=== PATIENT | female | born 1940 | race Caucasian/White ===

== ENCOUNTER 2024-01-21 17:32 | Observation (INO) ==
[2024-01-21] MEDS: fentaNYL citrate PF 100 MCG/2 ML VIAL IV PRN (17:57)
[2024-01-21] MEDS: ONDANSETRON INJ 2 MG/ML 2 ML VIAL IV STA (17:57)
[2024-01-21 18:11] LABS: iSTAT Creatinine 0.4 mg/dl (0.6-1.3); iSTAT Hemoglobin 13.9 g/dl (12.0-16.0); iSTAT Ionized Calcium 1.12 mmol/l (1.12-1.32); iSTAT Potassium 4.3 mmol/L (3.3-5.0)
[2024-01-21 18:15] LABS: Basophils # (auto) 0.03 K/uL (0.00-0.20); Basophils % (auto) 0.4 %; Eosinophils % (auto) 1.4 %; Hematocrit (blood only) 40.2 % (37.0-47.0); Hemoglobin 13.8 g/dl (12.0-16.0); Immature Granulocytes # (auto) 0.05 K/uL (0.01-0.20); Immature Granulocytes % (auto) 0.7 %; Lymphocytes # (auto) 1.79 K/uL (1.20-3.40); Lymphocytes % (auto) 24.2 %; Mean Corpuscular Hemoglobin 30.3 pg (25.0-34.0); Mean Corpuscular Hgb Conc 34.3 g/dL (32.0-36.0); Mean Corpuscular Volume 88.2 fL (80.0-100.0); Monocytes # (auto) 0.47 K/uL (0.11-0.59); Monocytes % (auto) 6.4 %; Neutrophils # (auto) 4.95 K/uL (1.40-6.50); Neutrophils % (auto) 66.9 %; Platelet Count 195 K/uL (130-400); RDW Coefficient of Variation 13.1 % (11.5-14.5); RDW Standard Deviation 42.1 fL (36.4-46.3); Red Blood Count 4.56 M/uL (4.20-5.40); White Blood Count 7.39 K/ul (4.8-10.8)
[2024-01-21] MEDS: OPTIRAY 320 100ml IV ONE (18:21)
[2024-01-21 18:39] LABS: Alanine Aminotransferase 17 U/L (7-52); BUN Creatinine Ratio 51.1 (10-20); Bilirubin,Total 0.3 mg/dl (0.2-1.0); Blood Urea Nitrogen 24 mg/dl (6-23); Carbon Dioxide 23 mmol/L (21-32); Chloride 107 mmol/L (98-107); Creatinine Clr Calc Pharmacy 89.7 ml/min; Glucose 124 mg/dl (70-99(Fasting)); Total Protein 7.1 gm/dl (6.0-8.3); Troponin I High Sensitivity 5.9 pg/ml (0-14)
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
[2024-01-21 20:00] LABS: Albumin Level 4.1 gm/dl (3.4-5.0); Potassium 3.4 mmol/L (3.5-5.1)
[2024-01-21] MEDS ORDERED: Patient's ALLERGY Info needs ENTERED SCH (20:45)
[2024-01-21 20:55] LABS: Magnesium 1.8 mg/dl (1.7-2.4)
[2024-01-21] MEDS: POTASSIUM CHLORIDE CRTAB 20 MEQ TABCR PO STA (21:12)
[2024-01-21] MEDS: HYDROmorphone INJ 0.5 MG/0.5 ML SYR IV STA (21:28)
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
[2024-01-21] MEDS ORDERED: POLYETHYLENE (MIRALAX) 17 GM PACK PO PRN (23:22)
[2024-01-21] MEDS ORDERED: NITROGLYCERIN SL 0.4 MG/TAB TAB SL PRN (23:22)
[2024-01-21] MEDS ORDERED: ACETAMINOPHEN 325 MG TAB PO PRN (23:22)
[2024-01-21] MEDS: SODIUM CHLORIDE 0.9% 1,000 ML IV SCH (23:48)
[2024-01-22 03:37] LABS: Appearance Urine Clear (Clear); Bacteria Urine Automated None Seen (None Seen); Bilirubin Urine Negative (Negative); Blood Urine Trace (Negative); Cast Urine Automated 0-2 /lpf (0-2); Color Urine Yellow; Epithelial Cell Urine Auto 0-2 /hpf (0-2); Glucose Urine UA Negative (Negative); Ketones Urine Trace (Negative); Leukocyte Esterase Urine 2+ (Negative); Nitrite Urine Negative (Negative); Protein Urine Negative (Negative); RBC Urine Automated 0-2 /hpf (0-2); Specific Gravity Urine > 1.045 (1.000-1.030); Urobilinogen Urine Negative (Negative); WBC Urine Automated 0-5 /hpf (0-5); pH Urine 5.5 (4.5-7.5)
[2024-01-22] MEDS: ACETAMINOPHEN 1,000 MG/100 ML VIAL IV PRN (05:41)
[2024-01-22 06:41] LABS: Basophils # (auto) 0.02 K/uL (0.00-0.20); Basophils % (auto) 0.2 %; Hematocrit (blood only) 33.8 % (37.0-47.0); Hemoglobin 11.6 g/dl (12.0-16.0); Immature Granulocytes # (auto) 0.03 K/uL (0.01-0.20); Immature Granulocytes % (auto) 0.4 %; Lymphocytes # (auto) 1.11 K/uL (1.20-3.40); Lymphocytes % (auto) 13.7 %; Mean Corpuscular Hemoglobin 30.1 pg (25.0-34.0); Mean Corpuscular Hgb Conc 34.3 g/dL (32.0-36.0); Mean Corpuscular Volume 87.8 fL (80.0-100.0); Mean Platelet Volume 10.7 fL (9.4-12.4); Neutrophils # (auto) 6.52 K/uL (1.40-6.50); Neutrophils % (auto) 80.7 %; Platelet Count 149 K/uL (130-400); RDW Coefficient of Variation 13.2 % (11.5-14.5); Red Blood Count 3.85 M/uL (4.20-5.40); White Blood Count 8.08 K/ul (4.8-10.8)
[2024-01-22 06:55] LABS: BUN Creatinine Ratio 41.5 (10-20); Calcium 8.2 mg/dl (8.6-10.3); Creatinine Clr Calc Pharmacy 92.6 ml/min; Magnesium 1.8 mg/dl (1.7-2.4); Potassium 3.9 mmol/L (3.5-5.1)
[2024-01-22 07:01] LABS: Troponin I High Sensitivity 9.6 pg/ml (0-14)
--- NOTE | 2024-01-22 07:59 | Electrocardiogram Report ---
Test Reason : Blood Pressure : */* mmHG Vent. Rate : 91 BPM Atrial Rate : 91 BPM P-R Int : 166 ms QRS Dur : 66 ms QT Int : 396 ms P-R-T Axes : 36 57 35 degrees QTcB Int : 487 ms Poor data quality, interpretation may be adversely affected Normal sinus rhythm with occasional Premature atrial complexes Abnormal ECG No previous ECGs available Confirmed by Mark Perez ([id number]) on 01/22/2024 7:59:14 AM Referred By: REFERRED SELF Confirmed By: Mark Perez
--- NOTE | 2024-01-22 08:08 | Electrocardiogram Report ---
Test Reason : Blood Pressure : */* mmHG Vent. Rate : 72 BPM Atrial Rate : 72 BPM P-R Int : 158 ms QRS Dur : 68 ms QT Int : 416 ms P-R-T Axes : 18 51 40 degrees QTcB Int : 455 ms Normal sinus rhythm Normal ECG When compared with ECG of 21-Jan-2024 17:43, Premature atrial complexes no longer present Confirmed by Mark Perez ([id number]) on 01/22/2024 8:08:29 AM Referred By: REFERRED SELF Confirmed By: Mark Perez
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
[2024-01-22] MEDS: ATORVASTATIN 20 MG TAB PO SCH (08:56)
[2024-01-22] MEDS: ATENOLOL 25 MG TABLET PO SCH (08:56)
[2024-01-22] MEDS: amLODIPine BESYLATE 5 MG TAB PO SCH (08:56)
[2024-01-22] MEDS: ASPIRIN 81 MG ECTAB PO SCH (08:56)
[2024-01-22] MEDS: HYDROmorphone INJ 0.5 MG/0.5 ML SYR IV PRN (09:03)
--- NOTE | 2024-01-22 09:18 | XRay Report ---
XR chest 1V portable CLINICAL HISTORY: sternal fracture COMPARISON STUDY: Chest radiograph and chest CT January 21, 2024. FINDINGS: There is no pneumothorax or pleural effusion. Linear left basilar densities represent atele ctasis. No consolidation is present and there is no evidence for pulmonary edema. The heart is mildly enlarged. The acute sternal fracture on CT of January 21, 2024 is not evident on AP chest radiograph . IMPRESSION: 1. No pneumothorax. 2. Linear left basilar densities consistent with atelectasis. ACT 112: Negative or not required by law. Electronically signed by: Michael Gray M.D. 01/22/2024 9:17 AM
[2024-01-22] MEDS: MAGNESIUM SULFATE / D5W 1 GM/100 ML BAG IV SCH (09:58)
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
[2024-01-22 14:48] VITALS: BP 125/73; PULSE 64; RESP 18; TEMP 97.7; O2SAT 96
== END 2024-01-22 15:44 | disposition short-term general hospital (02) | DRG 565 ==
LOC: ED 17:32 → SUATTDRO 21:31 → INTOOBSV 21:31 → 2E 21:31